=== PATIENT | female | born 1985 | race Caucasian/White ===

== ENCOUNTER 2021-05-15 00:31 | Outpatient (CLI) | payer MEDICAID, SELFPAY ==
--- NOTE | 2021-05-15 | DI.NM_ITS ---
Exam(s) NM HEPATOBILIARY CCK GRP EXAM: NM HEPATOBILIARY CCK GRP CLINICAL HISTORY: RUQ PAIN, R10.11. TECHNIQUE: Injected dose: 5 mCi Tc-99 mebrofenin Initial dynamic images: 60 minutes Post-Gallbladder fillin.9 mcg of CCK was administered according to protocol. Addition images: According to protocol. COMPARISON: No exams were available for comparison FINDINGS: Normal hepatic transit time. Prompt excretion into the small bowel. Prompt excretion into the gallbladder. The gallbladder ejection fraction is 64 percent. ([facility] jayden l CCK ejection fraction is greater than 40 percent.) IMPRESSION: 1. Normal gallbladder ejection fraction. Unremarkable HIDA scan. [facility] [place] guidelines: Gallbladder visualization should be present by 3 hours. Delayed [id number] spain sit beyond 60 min raises the suspicion for partial common bile duct (CBD) obstruction. Gallbladder ejection fraction <35% has a good correlation with acalculous disease (i.e., chronic acal culous cholecystitis, cystic duct syndrome, sphincter of Oddi disease).
== END 2021-05-15 00:51 ==
PROVIDERS: Visit Provider Family Medicine
DX: R10.11 Right upper quadrant pain (principal)
CPT/HCPCS: 78227

== ENCOUNTER 2024-09-26 16:00 | Outpatient (REF) | payer MEDICAID, SELFPAY ==
[2024-09-26 21:04] LABS: HCT 47.6 % (36.0-46.0); HGB 16.3 g/dL (11.2-15.7); MCH 32.6 pg (27.0-33.0); MCHC 34.2 % (32.0-36.0); MCV 95 fL (80-95); MPV 11.2 fL (8.0-11.0); Platelet Count 215 10^3/uL (130-400); RDW 12.1 % (11.7-14.6); WBC 5.45 10^3/uL (4.4-10.8)
[2024-09-26 21:39] LABS: ALT 40 U/L (14-59); AST 25 U/L (15-37); Alkaline Phosphatase 69 U/L (46-116); Anion Gap 7.7 mmol/L (3-11); BUN 11 mg/dL (7-18); Bilirubin, Total 1.4 mg/dL (0.2-1.0); CO2 29.3 mmol/L (21.0-32.0); Calcium 9.7 mg/dL (8.5-10.1); Chloride 107 mmol/L (98-107); Estimated GFR 73.04 (mL/min/1.73m2); Glucose 103 mg/dL (74-106); Potassium 3.7 mmol/L (3.5-5.1); Sodium 144 mmol/L (136-145); Total Protein 7.1 g/dL (6.4-8.2)
[2024-09-26 21:50] LABS: Hemoglobin A1C 4.5 % (<5.7)
[2024-09-26 22:01] LABS: Calculated LDL 64 mg/dL (<100); Cholesterol 146 mg/dL (<200); HDL Cholesterol 61 mg/dL (>or=50); Triglyceride 105 mg/dL (<150)
[2024-09-28 09:28] LABS: HIV-1/2 Ag & Ab Screen Negative (Negative)
[2024-09-28 10:39] LABS: Syphilis Serology (RPR) Negative (Negative)
[2024-09-28 11:41] LABS: Chlamydia Result Negative (Negative); GC Result Negative (Negative)
== END 2024-09-26 16:01 | disposition home or self-care (01) ==
LOC: NCHCN 16:00
PROVIDERS: Visit Provider Nurse Practitioner Family
DX: Z11.3 Encounter for screening for infections with a predominantly sexual mode of transmission (principal); K76.0 Fatty (change of) liver, not elsewhere classified; E66.01 Morbid (severe) obesity due to excess calories; Z01.818 Encounter for other preprocedural examination
CPT/HCPCS: 80053; 80061; 85027; 87389; 87491; 87591; 83036; 86592